=== PATIENT | female | born 1955 | race Caucasian/White ===

== ENCOUNTER → 2020-08-03 13:45 | Outpatient (BNVA) | payer OTHER, SELFPAY | PROVIDERS: Visit Provider Internal Medicine Rheumatology | DX: M19.041 Primary osteoarthritis, right hand (principal); Z79.899 Other long term (current) drug therapy; Z11.59 Encounter for screening for other viral diseases; Z11.1 Encounter for screening for respiratory tuberculosis; Z87.39 Personal history of other diseases of the musculoskeletal system and connective tissue; M19.042 Primary osteoarthritis, left hand | CPT/HCPCS: 99204 ==

== ENCOUNTER 2020-08-03 16:04 | Outpatient (CLI) | payer OTHER, SELFPAY ==
--- NOTE | 2020-08-03 16:13 | XRR_ITS ---
PROCEDURE INFORMATION: Exam: XR Chest, 2 Views Exam date and time: 08/03/2020 4:13 PM Age: 64 years old Clinical indication: Condition or disease; Other: Inflammatory arthritis TECHNIQUE: Imaging protocol: XR of the chest Views: 2 views. COMPARISON: No relevant prior studies available. FINDINGS: Lungs: Mild lung hyperinflation. No consolidative pulmonary infiltrate noted. Pleural space: Unremarkable. No pleural effusion. No pneumothorax. Heart/Mediastinum: Unremarkable. No cardiomegaly. Bones/joints: Mild degenerative spine changes. XR/XR chest 2V* [id number] IMPRESSION: Mild lung hyperinflation. No consolidative pulmonary infiltrate noted.
--- NOTE | 2020-08-03 16:13 | XRR_ITS ---
PROCEDURE INFORMATION: Exam: XR Right Hand Exam date and time: 08/03/2020 4:13 PM Age: 64 years old Clinical indication: Condition or disease; Other: Inflammatory arthritis; Hand; Right TECHNIQUE: Imaging protocol: XR Right hand. Views: 3 or more views. COMPARISON: No relevant prior studies available. FINDINGS: Bones/joints: Severe joint narrowing and osteophyte formation of the distal interphalangeal joints of the 2nd through 5th fingers. Similar, but less severe changes of the interphalangeal joint of the thumb, and of the proximal interphalangeal joints. The 1st carpometacarpal joint is affected as well. The metacarpophalangeal joints are spared. No fracture or other acute osseous abnormality. Soft tissues: Unremarkable. XR/XR hand RT min 3V* [id number] IMPRESSION: Polyarthritis of the hand and wrist. The pattern is suggestive of primary osteoarthritis.
--- NOTE | 2020-08-03 16:13 | XRR_ITS ---
PROCEDURE INFORMATION: Exam: XR Left Hand Exam date and time: 08/03/2020 4:13 PM Age: 64 years old Clinical indication: Condition or disease; Arthritis; Type not specified; Hand; Left; Additional info: Inflammatory arthritis TECHNIQUE: Imaging protocol: XR Left hand. Views: 3 or more views. COMPARISON: No relevant prior studies available. FINDINGS: Bones/joints: Advanced degenerative change of the 1st carpometacarpal joint. Moderate degenerative changes of the interphalangeal joints. Metacarpophalangeal joints are relatively well preserved. Mild diffuse osteopenia noted. No fracture or other acute osseous abnormality. Old ununited fracture of the ulnar styloid process noted. 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 Soft tissues: Unremarkable. XR/XR hand LT min 3V* [id number] IMPRESSION: 1. Polyarthritis of the hand and wrist. The pattern is suggestive of primary osteoarthritis. 2. 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
--- NOTE | 2020-08-03 16:13 | XRR_ITS ---
PROCEDURE INFORMATION: Exam: XR Right Foot Complete Exam date and time: 08/03/2020 4:13 PM Age: 64 years old Clinical indication: Condition or disease; Other: Inflammatory arthritis; Bilateral TECHNIQUE: Imaging protocol: XR Right foot. Views: 3 or more views. COMPARISON: No relevant prior studies available. FINDINGS: Bones/joints: Mild diffuse osteopenia noted. Minimal narrowing of the interphalangeal joints. No osteophyte formation. Similar changes are seen in the midfoot. No fracture or other acute osseous abnormality. Soft tissues: The soft tissues appear unremarkable. XR/XR foot RT min 3V* [id number] IMPRESSION: Mild nonspecific degenerative joint changes of the midfoot and the digits.
--- NOTE | 2020-08-03 16:13 | XRR_ITS ---
PROCEDURE INFORMATION: Exam: XR Left Foot Complete Exam date and time: 08/03/2020 4:13 PM Age: 64 years old Clinical indication: Condition or disease; Other: Inflammatory arthritis; Bilateral TECHNIQUE: Imaging protocol: XR Left foot. Views: 3 or more views. COMPARISON: No relevant prior studies available. FINDINGS: Bones/joints: Mild diffuse osteopenia noted. Minimal narrowing of the interphalangeal joints. No osteophyte formation. Similar changes are seen in the midfoot. No fracture or other acute osseous abnormality. Soft tissues: The soft tissues appear unremarkable. XR/XR foot LT min 3V* [id number] IMPRESSION: Mild nonspecific degenerative joint changes of the midfoot and the digits.
[2020-08-03 17:28] LABS: Basophils # 0.1 10^3/uL (0.0-0.1); Basophils % 1.5 %; Eosinophils # 0.2 10^3/uL (0.0-0.8); Hematocrit 33.1 % (37.0-47.0); Lymphocytes # 2.1 10^3/uL (0.8-4.8); Lymphocytes % 30.9 %; Mean Corpuscular HGB Conc 30.2 g/dL (30.0-36.0); Mean Corpuscular Hemoglobin 22.8 pg (28.0-34.0); Mean Corpuscular Volume 75.4 fL (81-99); Mean Platelet Volume 10.6 fL (7.4-10.4); Monocytes # 0.5 10^3/uL (0.2-0.9); Monocytes % 7.9 %; Neutrophils % 56.7 %; Nucleated Red Blood Cells % 0 %; Platelet Count 348 10^3/cmm (130-400); Red Blood Count 4.39 10^6/uL (4.1-5.3); White Blood Count 6.7 10^3/uL (4.0-10.0)
[2020-08-03 17:49] LABS: Alanine Aminotransferase 13 U/L (0-33); Albumin Level 4.2 g/dL (3.5-5.2); Alkaline Phosphatase 112 IU/L (35-105); Aspartate Amino Transferase 21 U/L (0-32); C Reactive Protein 1.2 mg/L (0.0-4.9); Globulin 2.6 g/dL (1.3-4.6); Glomerular Filtration Rate 124.6 mL/min (90-130); Total Bilirubin 0.2 mg/dL (0.15-1.2); Total Protein 6.8 g/dL (6.6-8.7)
[2020-08-03 19:39] LABS: Erythrocyte Sedimentation Rate 17 mm/hr (0-15)
[2020-08-03 22:13] LABS: Hepatitis B Surface Antigen Non-Reactive (Nonreactive); Hepatitis C Virus Antibody Non-Reactive (Nonreactive)
[2020-08-03 23:02] LABS: Hepatitis B Core AB, Total Non-Reactive (Nonreactive)
[2020-08-05 15:38] LABS: Cyclic Citrullinated Peptide <16 UNITS
[2020-08-06 15:03] LABS: Quantiferon Mitogen >10.00 IU/mL; Quantiferon Nil 0.02 IU/mL; Quantiferon Plus TB2 0.01 IU/mL; Quantiferon TB Gold NEGATIVE (NEGATIVE)
== END 2020-08-03 16:05 | disposition home or self-care (01) ==
LOC: RAD 16:09
PROVIDERS: Visit Provider Internal Medicine Rheumatology
DX: Z79.899 Other long term (current) drug therapy (principal); M13.0 Polyarthritis, unspecified; M24.642 Ankylosis, left hand
CPT/HCPCS: 36415; 71046; 73130; 73630; 80076; 82565; 85025; 85651; 86140; 86431; 86480; 86704; 86803; 87340